=== PATIENT | male | born 1965 | race Caucasian/White ===

== ENCOUNTER 2018-10-11 08:15 | Emergency (ER) | payer SELFPAY ==
[~2018-10-11] VITALS: Ht 188 cm; Wt 120.2 kg
[2018-10-11 08:33] VITALS: BP 140/88; Ht 188 cm; Wt 120.2 kg
== END 2018-10-11 09:47 | disposition home or self-care (01) ==
LOC: ED 08:15
DX: S93.601A Unspecified sprain of right foot, initial encounter (principal); S00.81XA Abrasion of other part of head, initial encounter; S80.212A Abrasion, left knee, initial encounter; W17.2XXA Fall into hole, initial encounter; Y93.89 Activity, other specified; Y92.89 Other specified places as the place of occurrence of the external cause; Y99.8 Other external cause status
CPT/HCPCS: 90715; Q0092